=== PATIENT | male | born 1995 | race Caucasian/White ===

== ENCOUNTER 2017-10-11 14:26 | Emergency (ER) | payer SELFPAY ==
[~2017-10-11] VITALS: Ht 175.3 cm; Wt 85.9 kg
[2017-10-11 14:35] VITALS: BP 128/84; PULSE 93; TEMP 98.1
== END 2017-10-11 15:37 | disposition home or self-care (01) ==
LOC: COL.ER 14:26
DX: H61.23 Impacted cerumen, bilateral (principal)